=== PATIENT | female | born 1985 | race Caucasian/White ===

== ENCOUNTER → 2018-11-06 | Outpatient (CLI) | payer OTHER | LOC: COL.LAB 11:13 | DX: O28.8 Other abnormal findings on antenatal screening of mother (principal); R76.8 Other specified abnormal immunological findings in serum; Z3A.12 12 weeks gestation of pregnancy ==

== ENCOUNTER 2019-05-26 03:48 | Inpatient (IN) | payer OTHER ==
[~2019-05-26] VITALS: Ht 157.5 cm; Wt 66.8 kg
[2019-05-26] VITALS (19 sets, daily range): BP systolic 110–144; BP diastolic 61–90; PULSE 65–113; TEMP 97.8–98.9
--- NOTE | 2019-05-26 03:55 | NUR ---
To unit via wheelchair , accompanied by spouse for labor assessment. Oriented to room, monitor, plan of care. Questions invited and answered. Moaning with contractions.
--- NOTE | 2019-05-26 04:20 | NUR ---
states "I might want an epidural before too long" off monitor, up to bathroom.
--- NOTE | 2019-05-26 04:45 | NUR ---
Screaming with contractions, Anesthesia notified of pt request for epidural.
--- NOTE | 2019-05-26 05:04 | NUR ---
Eddie round up ring hand into room for epidural palcement, see anesthesia record. Pt to edge of bed.
[2019-05-26 05:07] LABS: BASO % 0.3 % (0.0-2.0); EOS # 0.1 (0.0-0.7); EOS % 0.4 % (0-4.0); GRAN % 68.3 % (42.2-75.2); HEMOGLOBIN 11.2 g/dl (12.5-16.0); LYMPH # 2.4 (1.2-3.4); LYMPH % 20.7 % (20.0-51.0); MEAN CELL VOLUME 85 fl (80.0-100.0); MEAN CORPUSCULAR HEMOGLOBIN 28 pg (27.0-31.0); MEAN CORPUSCULAR HGB CONC 33 g/dl (33.0-37.0); MEAN PLATELET VOLUME 11.5 fl (7.4-10.4); MONO # 1.1 (0.1-0.6); MONO % 9.5 % (1.7-9.3); PLATELET COUNT 217 K/mm3 (130-400); RED BLOOD COUNT 3.98 M/mm3 (4.10-5.30); REDCELL DISTRIBUTION WIDTH-CV 13.7 % (11.5-14.5)
[2019-05-26 05:17] LABS: ALANINE AMINOTRANSFERASE < 6 U/L (9-52); ALBUMIN 3.6 gm/dL (3.5-5.0); ALKALINE PHOSPHATASE 164 U/L (50-136); ANION GAP 9 mmol/L (7-16); AST,SGOT 22 U/L (15-37); BILIRUBIN,TOTAL 0.2 mg/dL (0.0-1.0); BLOOD UREA NITROGEN 8 mg/dL (7-17); CALCIUM 8.9 mg/dL (8.4-10.2); CARBON DIOXIDE 20 mmol/L (22-30); CHLORIDE 107 mmol/L (98-107); GLUCOSE 87 mg/dL (74-106); POTASSIUM 3.9 mmol/L (3.4-5.0); SODIUM 137 mmol/L (137-145); TOTAL PROTEIN 6.8 gm/dL (6.4-8.2)
--- NOTE | 2019-05-26 05:25 | NUR ---
SVE as noted, large amount of soft BM.
--- NOTE | 2019-05-26 06:00 | NUR ---
BRIANE Complete, large BM noted. Pt states "I don't feel like it's time to push, I'm not ready.
--- NOTE | 2019-05-26 06:15 | NUR ---
0615-Patient begins pushing with MD at bedside. Moves vertex. Recieved bedside shift report from DANNY Tapia. Continue to value stream coach patient on pushing through contractions. 0631-Spontaneous vaginal delivery of head immediately followed by body. Mouth and nose bulb suctioned by MD, viable female placed on mothers abdoment, cord clamped and cut by FOB. Care of infant assumed by DANNY Buenrostro Apgars 8/9. 0634-Spontaneous delivery of intact placenta by . Fundal massage firm. Lochia WNL. Pitocin bolus per protocol. Perineum intanct, terrell care provided. Ice to perineum. Updated on safety and plan of care.
--- NOTE | 2019-05-26 08:00 | NUR ---
AMBULATORY TO BATHROOM, STEADY GAIT, VOIDS CLEAR YELLOW URINE. [facility] PROVIDED.
--- NOTE | 2019-05-26 08:30 | NUR ---
0830-AMBULATORY TO ROOM 219. ORIENTED TO ROOM. DENIES NEEDS.
[2019-05-27 08:15] VITALS: BP 127/78; PULSE 77; TEMP 97.7
[2019-05-27] MEDS ORDERED: IBU600 MG PO (09:21)
[2019-05-27 09:25] VITALS: BP 100/74; PULSE 79; TEMP 97.9
[2019-05-27 16:45] VITALS: BP 129/80; PULSE 77; TEMP 97.8
[2019-05-27 21:05] VITALS: BP 127/82; PULSE 81
--- NOTE | 2019-05-28 07:00 | NUR ---
Rests in bed, alert. Eating breakfast. Denies any needs at this time.
[2019-05-28 07:15] VITALS: BP 121/72; PULSE 84; TEMP 97.8
--- NOTE | 2019-05-28 09:00 | NUR ---
Discharge instructions given, verbalizes understanding.
--- NOTE | 2019-05-28 09:44 | NUR ---
Initial visit; Mom indisposed, Cooker Operator offered congratulations and God's blessings for the of their daughter to Dad and thanked them for choosing [facility].
== END 2019-05-28 09:40 | disposition home or self-care (01) | DRG 807 ==
LOC: LDRO 03:48 → LDR 04:14 → OB 04:14
PROVIDERS: ADMIT Obstetrics & Gynecology
PROC: 10E0XZZ Delivery of Products of Conception, External Approach (ICD-10-PCS; principal; 2019-05-26)
DX: O99.824 Streptococcus B carrier state complicating childbirth (principal); Z37.0 Single live birth; Z3A.40 40 weeks gestation of pregnancy; O69.89X0 Labor and delivery complicated by other cord complications, not applicable or unspecified
CPT/HCPCS: J2540; J2590; J2795; J7120